=== PATIENT | female | born 1975 | race Hispanic/Latino ===

== ENCOUNTER → 2018-08-14 | Day surgery (SDC) | payer OTHER ==
[~2018-08-14] MED LIST: BUPIVACAINE 0.5%/EPI 30 ML SDV INJ ONE; BUPIVACAINE HCL 0.5% INJ 30 ML VIAL INJ ONE; CEFAZOLIN SOD 2 GM/D5W 50ML 50 ML IV ONE; CORDRAN120 ML TOP; DEXAMETHASONE SOD PHOS INJ 4 MG/ML VIAL ONE; EPI PEN INJ; FENOPROFEN PO; FENTANYL CITRATE/PF 100MCG/2 ML INJ ONE; HYDROMORPHONE 2MG/ML 2 MG/ML ML ONE; KETOROLAC TROMETHAMINE 30 MG/ML VIAL ONE; LIDOCAINE HCL 2% LOCAL INJ 5 ML SDV VIAL INJ ONE; LIDOCAINE TOP; LORATADINE10 MG PO; MIDAZOLAM HCL 2 MG/2 ML VIAL ONE; NASAL SPRAY; NEOSTIGMINE 1 MG/ML 10ML VIAL ONE; OMEPRAZOLE PO; ONDANSETRON HCL INJ 2 MG/ML VIAL ONE; PROPOFOL IV EMULSION 10 MG/ML 20 ML VIAL ONE; RANITIDINE PO; ROCURONIUM BROMIDE 10 MG/ML 5ML VIAL ONE; SEVOFLURANE INHAL SOLN 250 ML PEN BTL ONE; SUCCINYLCHOLINE 200 MG/10 ML SYR ONE; ZONALON30 GM TOP
[2018-08-14 16:05] VITALS: BP 126/74
--- NOTE | 2018-08-28 14:08 | Operative Report ---
DATE OF PROCEDURE: August 14, 2018 STORE PERSON: None. PREOPERATIVE DIAGNOSES 1. Left ankle painful hardware. 2. Left ankle impingement with capsulitis and fibrous band. POSTOPERATIVE DIAGNOSES 1. Left ankle painful hardware. 2. Left ankle impingement with capsulitis and fibrous band. PROCEDURES PERFORMED 1. Left ankle hardware removal. 2. Left ankle arthroscopy with debridement and partial synovectomy. 3. Use of intraoperative fluoroscopy. 4. Left tibial nerve block. HEMOSTASIS: Thigh tourniquet at 250 mmHg. DETAILS OF PROCEDURE: After informed consent was obtained, the patient was brought to the operating room and placed on the operating table in the supine position. General anesthesia was obtained. A pneumatic thigh tourniquet was applied to the left thigh. The left lower extremity was scrubbed, prepped, and draped in the usual aseptic manner. Attention was directed to the left ankle where a linear incision was made along the lateral malleolus, where the hardware was placed. The incision was deepened down utilizing sharp and blunt dissection technique. All vital structures were identified and retracted as necessary. All bleeders were identified, ligated, and cauterized as necessary. Next, the hardware was identified and resected in toto from the left ankle. At this time, intraoperative fluoroscopy was used, which showed good reduction of the deformity and resection of all painful hardware with the exception of the lag screw, which was left in place due to the fact that it was buried. Next, the wound was irrigated with copious amounts of normal saline. The wound was then coapted utilizing 3-0 Vicryl, 4-0 Vicryl, and 4-0 nylon. Attention was directed to the anterior aspect of the left ankle where a linear incision was made approximately 1 cm in length just medial to the tibialis anterior tendon at the level of the ankle joint. The incision was deepened down utilizing sharp and blunt dissection technique. Next, the trocar was introduced through the anteromedial portal followed by the introduction of the scope through the anteromedial portal. Next, the joint was visualized, and it was noted to have a significant amount of impingement with fibrous bands, a significant amount of synovitis and hemorrhagic synovitis. Next, the shaver was introduced through the anterolateral portal after it was made utilizing a #16 blade just lateral to the peroneus tertius tendon to the level of the ankle joint. The incision was deepened down utilizing sharp and blunt dissection. Next, the shaver 4-0 was introduced through the anterolateral portal. All nonviable tissue was resected and removed form the surgical site. At this time, the underwater Bovie was introduced, and cauterization of all bleeders was performed under direct visualization. Next, the ankle joint was thoroughly visualized, and it was noted that all capsulitis impingement fibrous banding was resected and removed from the surgical site. Hemostasis was obtained utilizing the underwater Bovie. Next, the articular surfaces were examined, and it was noted that there was no osteochondral fracture and no lesions to be treated. Next, the shaver and the scope were removed from the surgical site. The wound sites were coapted utilizing 4-0 nylon. Next, the left ankle joint was injected with 10 mL of 0.5% Marcaine plain with epinephrine followed by a left tibial nerve block consisting of 5 mL of 0.5% Marcaine plain. One mL of 40 mg of Decadron was injected into the left ankle joint. The left lower extremity was then placed in a dry sterile dressing consisting of Xeroform, 4 x 4's, Kerlix and an Harjit wrap. The patient tolerated the procedure and the anesthesia well. The patient was transferred back to the recovery room with vital signs stable and neurovascular status intact to preop status. Prior to taking the patient back to PACU, the pneumatic thigh tourniquet was deflated, and prompt hyperemic response was noted to all digits of the left lower extremity. Job#: [id number]
== END | disposition home or self-care (01) ==
LOC: OR 09:47
PROVIDERS: ATTEND Podiatrist Foot & Ankle Surgery
DX: T84.84XA Pain due to internal orthopedic prosthetic devices, implants and grafts, initial encounter (principal); M25.872 Other specified joint disorders, left ankle and foot; M77.52 Other enthesopathy of left foot and ankle; M65.872 Other synovitis and tenosynovitis, left ankle and foot; E66.9 Obesity, unspecified; Y83.8 Other surgical procedures as the cause of abnormal reaction of the patient, or of later complication, without mention of misadventure at the time of the procedure; Z86.11 Personal history of tuberculosis
CPT/HCPCS: 20680; 29897; 81025; J0690; J1100; J1170; J1885; J2001; J2250; J2405; J2704; J2710; 76000